=== PATIENT | male | born 1980 | race Caucasian/White ===

== ENCOUNTER 2019-06-25 14:08 | Inpatient (IN) | payer OTHER ==
[2019-06-25] MEDS ORDERED: PANTOPRAZOLE SODIUM 40 MG VIAL IVPUSH ONE (15:47)
[2019-06-25] MEDS ORDERED: ONDANSETRON 4 MG/2 ML VIAL IVPUSH ONE (15:47)
--- NOTE | 2019-06-25 15:51 | PDOC ---
History of Present Illness - General Chief Complaint: Vomiting/Diarrhea Stated Complaint: VOMITING & DIARRHEA Time Seen by Provider: 06/25/19 15:37 History Source: Patient Exam Limitations: No Limitations - History of Present Illness Initial Comments: 06/25/19 15:50 38 yo male pmh umbilical hernia (pending surgical correction 06/30/2019) presents to the ED for bloody diarrhea and vomiting blood. Pt states he had a similar episode 2003, had an EGD and colonoscopy at that time but does not remember findings, did not require outpatient f/u and has not had symptoms since. Pt states today, 2 episodes of loose dark stools with bright red blood around it and 2 episodes of bright red blood in the vomit. states pt appears pale however, denies weakness, dizziness, denies abdominal pain or pain on defecation, denies CP, SOB, back pain, F/C/N/V, changes in eating habits or recent NSAID use. Past History - Past Medical History Allergies/Adverse Reactions: Allergies Allergy/AdvReac Type Severity Reaction Status Date / Time No Known Allergies Allergy Verified 06/25/19 16:27 Home Medications: Ambulatory Orders Finasteride 5 mg PO DAILY 06/25/19 Review of Systems - Review of Systems Constitutional: No: Chills, Fever Respiratory: No: Shortness of Breath Cardiac (ROS): No: Chest Pain, Syncope ABD/GI: Yes: Diarrhea (bloody and dark), Nausea, Vomiting (bloody). No: Abdominal Distended Musculoskeletal: No: Back Pain Integumentary: Yes: Pallor Neurological: No: Headache, Numbness, Paresthesia, Weakness, Unsteady Gait, Dizziness *Physical Exam - Physical Exam General Appearance: Yes: Nourished, Appropriately Dressed. No: Apparent Distress HEENT: positive: EOMI, Other (conjunctival pallor) Respiratory/Chest: positive: Lungs Clear, Normal Breath Sounds. negative: Accessory Muscle Use, Rapid RR, Crackles, Rales, Rhonchi, Stridor, Wheezing Cardiovascular: positive: Regular Rhythm, Regular Rate, S1, S2. negative: Edema , JVD, Murmur Vascular Pulses: Dorsalis-Pedis (R): 4+, Doralis-Pedis (L): 4+ Gastrointestinal/Abdominal: positive: Flat, Soft, Other (umbilical hernia, easily reducible, no tenderness ). negative: Pulsatile Mass, Distended, Guarding, Rebound, Tenderness Rectal Exam: positive: melena, heme positive stool, other (picture of stool today shows bright red blood around dark loose stools) Musculoskeletal: negative: CVA Tenderness Extremity: positive: Normal Inspection, Normal Range of Motion Integumentary: positive: Dry, Warm, Pale Neurologic: positive: Fully Oriented, Alert, Normal Mood/Affect, Normal Response , Motor Strength 10/04 ED Treatment Course - LABORATORY CBC & Chemistry Diagram: 06/25/19 16:25 06/25/19 16:25 - RADIOLOGY Radiology Studies Ordered: Category Date Time Status CHEST PA & LAT [RAD] Stat Radiology 06/25/19 15:49 Ordered Medical Decision Making - Medical Decision Making 06/25/19 16:11 38 yo male pmh umbilical hernia (pending surgical correction 06/30/2019) presents to the ED for bloody diarrhea and vomiting blood. Pt states he had a similar episode 2003, had an EGD and colonoscopy at that time but does not remember findings, did not require outpatient f/u and has not had symptoms since. Pt states today, 2 episodes of loose dark stools with bright red blood around it and 2 episodes of bright red blood in the vomit. states pt appears pale however, denies weakness, dizziness, denies abdominal pain or pain on defecation, denies CP, SOB, back pain, F/C/N/V, changes in eating habits or recent NSAID use. vitals WNL Pt well appearing, ambulatory without difficulty, noted pale conjunctiva bilaterally and blood in stool via picture. Rectal exam shows no hemorrhoids or active rectal bleeding. Dark stools shown with blood in the stool occult will do labs and CXR Labs WNL however, BUN elevated to 27 and Cr WNL 06/25/19 18:[address] Rodriguez, states no GI coverage on weekends at [facility], no EGD /colonoscopy and recommends transfer to [facility] for serial CBC and possible EGD if required Pending call back for admission to tele from hospitalist 06/25/19 19:22 discussed case with hospitalist, agrees to admission however, if no tele beds available, pt likely to be transferred Discharge - Discharge Information Problems reviewed: Yes Clinical Impression/Diagnosis: Upper GI bleed Condition: Stable - Admission Yes - Follow up/Referral - Patient Discharge Instructions - Post Discharge Activity
[2019-06-25] MEDS ORDERED: PANTOPRAZOLE SODIUM 40 MG VIAL ONE (16:31)
[2019-06-25] MEDS ORDERED: ONDANSETRON 4 MG/2 ML VIAL ONE (16:31)
[2019-06-25 16:51] LABS: BASO % 0.2 % (0-2.0); EOS % 0.6 % (0-4.5); HEMATOCRIT 41.5 % (35.4-49); HEMOGLOBIN 13.7 GM/dl (11.7-16.9); LYMPH % 15.1 % (8-40); MEAN CELL VOLUME 90.8 fl (80-96); MEAN PLT VOLUME 8.5 fl (7.5-11.1); MONO % 8.7 % (3.8-10.2); NEUT % 75.4 % (42.8-82.8); PLATELET COUNT 204 K/MM3 (134-434); RBC 4.57 M/mm3 (4.00-5.60); WHITE BLOOD COUNT 6.3 K/mm3 (4.0-10.8)
[2019-06-25 17:02] LABS: INR 1.38 (0.82-1.09); PROTHROMBIN TIME (PATIENT) 15.4 SEC (10.2-13.0)
[2019-06-25 17:17] LABS: ALBUMIN 3.8 g/dl (3.4-5.0); BILIRUBIN,TOTAL 1.2 mg/dl (0.2-1); CALCIUM 8.5 mg/dl (8.5-10); POTASSIUM 4.4 mmol/L (3.5-5.1); TOT PROT 6.7 g/dl (6.4-8.2)
[2019-06-25 21:17] LABS: HEMATOCRIT 35.9 % (35.4-49); HEMOGLOBIN 12.4 GM/dl (11.7-16.9); MCH 31.5 pg (25.7-33.7); MCHC 34.5 g/dl (32.0-35.9); MEAN CELL VOLUME 91.2 fl (80-96); MEAN PLT VOLUME 8.7 fl (7.5-11.1); PLATELET COUNT 169 K/MM3 (134-434); RBC 3.94 M/mm3 (4.00-5.60); RDW 12.1 % (11.9-15.9); WHITE BLOOD COUNT 5.8 K/mm3 (4.0-10.8)
--- NOTE | 2019-06-25 22:24 | HP ---
CHIEF COMPLAINT: Blood in vomit and stool. PCP: none HISTORY OF PRESENT ILLNESS: 38 yo m w/ no PMH comes into [place] ED c/o a 1 day history of hematemesis and melena. The patient woke up this AM feeling weak and tired and had a total a 2 episodes of coffee ground emesis as well as 2 episodes of melena. The patient has associated lightheadedness and pallor. The patient had a simialr epsiode several eyars ago and was worked up as an inpatient by GI and sent home with nexium and no GI follow up. The patient does not recall the results of his EGD at that time. Patient has not had a bleeding episode since 2pm today and feels only a mild amount of weakness. There was no GI service available at [facility], so the patient was transferred to [facility] for further evaluation. Recent Travel: none PAST MEDICAL HISTORY: see HPI PAST SURGICAL HISTORY: none Social History: Smoking: denies Alcohol: denies Drugs: denies Allergies No Known Allergies Allergy (Verified 06/25/19 16:27) HOME MEDICATIONS: Home Medications Medication Instructions Recorded Finasteride 5 mg PO DAILY 06/25/19 REVIEW OF SYSTEMS CONSTITUTIONAL: Absent: fever, chills, diaphoresis, loss of appetite, weight change HEENT: Absent: rhinorrhea, nasal congestion, throat pain, throat swelling, difficulty swallowing, mouth swelling, ear pain, eye pain, visual changes CARDIOVASCULAR: Absent: chest pain, syncope, palpitations, irregular heart rate, lightheadedness , peripheral edema RESPIRATORY: Absent: cough, shortness of breath, dyspnea with exertion, orthopnea, wheezing, stridor, hemoptysis GASTROINTESTINAL: Absent: abdominal pain, abdominal distension GENITOURINARY: Absent: dysuria, frequency, urgency, hesitancy, hematuria, flank pain, genital pain MUSCULOSKELETAL: Absent: myalgia, arthralgia, joint swelling, back pain, neck pain SKIN: Absent: rash, itching, pallor HEMATOLOGIC/IMMUNOLOGIC: Absent: easy bleeding, easy bruising, lymphadenopathy, frequent infections ENDOCRINE: Absent: unexplained weight gain, unexplained weight loss, heat intolerance, cold intolerance NEUROLOGIC: Absent: headache, focal weakness or paresthesias, dizziness, unsteady gait, seizure, mental status changes, bladder or bowel incontinence PSYCHIATRIC: Absent: anxiety, depression, suicidal or homicidal ideation, hallucinations. PHYSICAL EXAMINATION Vital Signs - 24 hr 06/25/19 06/25/19 06/25/19 14:10 19:00 19:33 Temperature 98.7 F 98.0 F 98.0 F Pulse Rate 80 72 Pulse Rate [ 72 Right Radial] Respiratory 16 16 16 Rate Blood Pressure 128/85 135/75 Blood Pressure 135/75 [Right Arm] O2 Sat by Pulse 100 99 Oximetry (%) GENERAL: Awake, alert, and fully oriented, in no acute distress. EYES: Pupils equal, round and reactive to light, extraocular movements intact, sclera anicteric, conjunctival Pallor noted. LUNGS: Breath sounds equal, clear to auscultation bilaterally. No wheezes, and no crackles. No accessory muscle use. HEART: Regular rate and rhythm, normal S1 and S2 without murmur, rub or gallop. ABDOMEN: Soft, nontender, not distended, normoactive bowel sounds, no guarding, no rebound, no masses. There is an easily reducible umbilical hernia resent which is mildly tender to palpation. Patient deferred rectal exam at the time of evaluation. LOWER EXTREMITIES: 2+ pulses, warm, well-perfused. No calf tenderness. No peripheral edema. NEUROLOGICAL: Cranial nerves II-X intact. Normal speech. PSYCHIATRIC: Cooperative. Good eye contact. Appropriate mood and affect. SKIN: Warm, dry, normal turgor, no rashes or lesions noted, normal capillary refill. Laboratory Results - last 24 hr 06/25/19 06/25/19 06/25/19 16:25 16:25 16:25 WBC 6.3 RBC 4.57 Hgb 13.7 Hct 41.5 MCV 90.8 MCH 30.0 MCHC 33.0 RDW 12.0 Plt Count 204 MPV 8.5 Absolute Neuts (auto) 4.9 Neutrophils % 75.4 Lymphocytes % 15.1 Monocytes % 8.7 Eosinophils % 0.6 Basophils % 0.2 PT with INR INR Sodium 136 Potassium 4.4 Chloride 103 Carbon Dioxide 27 Anion Gap 6 L BUN 27.0 H Creatinine 1.0 Est GFR (CKD-EPI)AfAm 109.40 Est GFR (CKD-EPI)NonAf 94.39 Random Glucose 96 Calcium 8.5 Total Bilirubin 1.2 H AST 23 ALT 43 Alkaline Phosphatase 55 Total Protein 6.7 Albumin 3.8 Lipase 93 Urine Color Urine Appearance Urine pH Urine Protein Urine Glucose (UA) Urine Ketones Urine Blood Urine Nitrite Urine Bilirubin Urine Urobilinogen Ur Leukocyte Esterase Stool Occult Blood Blood Type Antibody Screen 06/25/19 06/25/19 06/25/19 16:25 16:25 17:53 WBC RBC Hgb Hct MCV MCH MCHC RDW Plt Count MPV Absolute Neuts (auto) Neutrophils % Lymphocytes % Monocytes % Eosinophils % Basophils % PT with INR 15.4 H INR 1.38 H Sodium Potassium Chloride Carbon Dioxide Anion Gap BUN Creatinine Est GFR (CKD-EPI)AfAm Est GFR (CKD-EPI)NonAf Random Glucose Calcium Total Bilirubin AST ALT Alkaline Phosphatase Total Protein Albumin Lipase Urine Color Urine Appearance Urine pH Urine Protein Urine Glucose (UA) Urine Ketones Urine Blood Urine Nitrite Urine Bilirubin Urine Urobilinogen Ur Leukocyte Esterase Stool Occult Blood Positive Blood Type O POSITIVE Antibody Screen Negative 06/25/19 06/25/19 17:53 21:00 WBC 5.8 RBC 3.94 L Hgb 12.4 Hct 35.9 MCV 91.2 MCH 31.5 MCHC 34.5 RDW 12.1 Plt Count 169 MPV 8.7 Absolute Neuts (auto) Neutrophils % Lymphocytes % Monocytes % Eosinophils % Basophils % PT with INR INR Sodium Potassium Chloride Carbon Dioxide Anion Gap BUN Creatinine Est GFR (CKD-EPI)AfAm Est GFR (CKD-EPI)NonAf Random Glucose Calcium Total Bilirubin AST ALT Alkaline Phosphatase Total Protein Albumin Lipase Urine Color Yellow Urine Appearance Clear Urine pH 7.0 Urine Protein Negative Urine Glucose (UA) Negative Urine Ketones Negative Urine Blood Negative Urine Nitrite Negative Urine Bilirubin Negative Urine Urobilinogen 0.2 Ur Leukocyte Esterase Negative Stool Occult Blood Blood Type Antibody Screen ASSESSMENT/PLAN: 38 yo m w/ no PMH comes into [place] ED c/o a 1 day history of hematemesis and melena. Patient begin admitted for further workup and monitoring. #Hematemesis and hematochezia 2/2 GIB -had similar episode in the past -hemodyamically stable -Hb stable, ok to monitor in AM -protonix GTT -GI evaluation in AM -transfusion threshold 7 #FEN -protonix GTT -lytes wnl -npo until gi eval #prophy -scds; holding AC for GI bleeder -protonix GTT #Dispo -admit tele Family Medical History Other Family History: father has history of multiple bleeding ulcers Visit type - Emergency Visit Emergency Visit: Yes ED Registration Date: 06/25/19 Care time: The patient presented to the Emergency Department on the above date and was hospitalized for further evaluation of their emergent condition. - New Patient This patient is new to me today: Yes Date on this admission: 06/26/19 - Critical Care Critical Care patient: No ATTENDING PHYSICIAN STATEMENT I saw and evaluated the patient. I reviewed the resident's note and discussed the case with the resident. I agree with the resident's findings and plan as documented. SUBJECTIVE: OBJECTIVE: ASSESSMENT AND PLAN:
[2019-06-25 22:52] VITALS: BMI 33.0
--- NOTE | 2019-06-25 23:02 | PN ---
Teaching Attending Note Name of Resident: Colton Logan ATTENDING PHYSICIAN STATEMENT I saw and evaluated the patient. I reviewed the resident's note and discussed the case with the resident. I agree with the resident's findings and plan as documented. SUBJECTIVE: 38-year-old male with no significant past medical history aside from hematemesis when he was 19 years old status post EGD and no further management, presented with hematemesis x2 and 2 bloody BMs which started 06/25/2019 in the morning. Patient reported that he vomited small amount of bright red blood probably not enough to fill a small cup. Blood in stool was minimal as well. No loss of consciousness or dizziness. Never had a colonoscopy. Denies taking any NSAIDs. Patient was transferred to [facility] from [facility]. OBJECTIVE: Last Vital Signs Temp Pulse Resp BP Pulse Ox 98.4 F 83 18 148/81 98 06/25/19 22:10 06/25/19 22:10 06/25/19 22:10 06/25/19 22:10 06/25/19 22:10 GENERAL: Obese, not in acute distress, well-developed HEENT: Normocephalic, atraumatic. PERRLA, EOMI. No conjunctival pallor. Sclera are non- icteric. Moist mucous membranes. Oropharynx is clear. NECK: Supple. Full ROM. No JVD. Carotid pulses 2+ and symmetric, without bruits. No thyromegaly. No lymphadenopathy. CARDIOVASCULAR: Regular rate and rhythm. No murmurs, rubs, or gallops. Distal pulses are 2+ and symmetric. PULMONARY: No evidence of respiratory distress. Lungs clear to auscultation bilaterally. No wheezing, rales or rhonchi. ABDOMINAL: Soft. Obese, Non-tender. Non-distended. No rebound or guarding. No organomegaly. Normoactive bowel sounds. MUSCULOSKELETAL Normal range of motion at all joints. No bony deformities or tenderness. No CVA tenderness. EXTREMITIES: No cyanosis. No clubbing. No edema. No calf tenderness. SKIN: Warm and dry. Normal capillary refill. No rashes. No jaundice. PSYCHIATRIC: Cooperative. Good eye contact. Appropriate mood and affect. Abnormal Lab Results 06/25/19 06/25/19 06/25/19 16:25 16:25 21:00 RBC 3.94 L PT with INR 15.4 H INR 1.38 H Anion Gap 6 L BUN 27.0 H Total Bilirubin 1.2 H ASSESSMENT AND PLAN: 38-year-old male with GI bleed, uncertain source of bleed. SHERI was performed in [facility] and did not show any hemorrhoids.Patient is hemodynamically stable at this time. Hemoglobin is stable. PT was appreciated and very mildly elevated, platelets were noted to be normal. Admit to telemetry Ensure 2 large-bore IVs are in place Monitor vital signs every 4 hours CBC every 6 hours Send PTT and type and screen GI consult Protonix drip IV fluid hydration N.p.o. If large bloody vomitus or BM would consider to transfer to ICU SCDs for DVT prophylaxis
[2019-06-25] MEDS: PANTOPRAZOLE SODIUM 80 MG in SODIUM CHLORIDE 100 ML IVPB SCH (23:27)
[2019-06-25] MEDS ORDERED: ONDANSETRON 4 MG/2 ML VIAL IVPUSH PRN (23:48)
[2019-06-26] MEDS: SODIUM CHLORIDE 1,000 ML IV SCH (02:20)
[2019-06-26 07:48] LABS: HEMATOCRIT 36.1 % (35.4-49); HEMOGLOBIN 12.4 GM/dL (11.7-16.9); MCH 31.1 pg (25.7-33.7); MCHC 34.4 g/dl (32.0-35.9); MEAN CELL VOLUME 90.4 fl (80-96); MEAN PLT VOLUME 8.7 fl (7.5-11.1); PLATELET COUNT 179 K/MM3 (134-434); RDW 12.8 % (11.9-15.9)
[2019-06-26 09:23] LABS: ALBUMIN 3.4 g/dl (3.4-5.0); BILIRUBIN,TOTAL 0.8 mg/dL (0.2-1); BLOOD UREA NITROGEN 26.6 mg/dL (7-18); CALCIUM 8.4 mg/dL (8.5-10.1); MAGNESIUM 2.4 mg/dL (1.8-2.4); PHOSPHOROUS 2.8 mg/dL (2.5-4.9); POTASSIUM 4.3 mmol/L (3.5-5.1)
[2019-06-26] MEDS: PANTOPRAZOLE SODIUM 80 MG in SODIUM CHLORIDE 100 ML IVPB SCH ×2 (09:30→17:43)
--- NOTE | 2019-06-26 10:35 | EKG ---
Test Reason : Blood Pressure : / mmHG Vent. Rate : 074 BPM Atrial Rate : 074 BPM P-R Int : 138 ms QRS Dur : 138 ms QT Int : 430 ms P-R-T Axes : 026 021 007 degrees QTc Int : 477 ms NORMAL SINUS RHYTHM RIGHT BUNDLE BRANCH BLOCK ABNORMAL ECG NO PREVIOUS ECGS AVAILABLE Confirmed by KSNEIA RAZO MD ([id number]) on 06/26/2019 10:35:09 AM Referred By: MD MCNEIL Confirmed By:KSENIA RAZO MD
--- NOTE | 2019-06-26 12:27 | PN ---
Physical Exam: SUBJECTIVE: Patient seen and examined; no further bleeding. No new complaints. Doing well. H/H stable; d/w GI and will scope friday. No new complaints. DC cardiac monitoring as not indicated. 10 sys ROS done and negative aside from HPI OBJECTIVE: Vital Signs Period Temp Pulse Resp BP Sys/Yang Pulse Ox Last 24 Hr 97.5 F-98.7 F 72-86 16-18 123-148/74-85 98-100 GENERAL: The patient is awake, alert, and fully oriented, in no acute distress. HEAD: Normal with no signs of trauma. EYES: PERRL, extraocular movements intact, sclera anicteric, conjunctiva clear. No ptosis. ENT: Ears normal, nares patent, oropharynx clear without exudates, moist mucous membranes. NECK: Trachea midline, full range of motion, supple. LUNGS: Breath sounds equal, clear to auscultation bilaterally, no wheezes, no crackles, no accessory muscle use. HEART: Regular rate and rhythm, S1, S2 without murmur, rub or gallop. ABDOMEN: Soft, nontender, nondistended, normoactive bowel sounds, no guarding, no rebound, no hepatosplenomegaly, no masses. EXTREMITIES: 2+ pulses, warm, well-perfused, no edema. NEUROLOGICAL: Cranial nerves II through XII grossly intact. Normal speech, gait not observed. PSYCH: Normal mood, normal affect. SKIN: Warm, dry, normal turgor, no rashes or lesions noted Laboratory Results - last 24 hr 06/25/19 06/25/19 06/25/19 16:25 16:25 16:25 WBC 6.3 RBC 4.57 Hgb 13.7 Hct 41.5 MCV 90.8 MCH 30.0 MCHC 33.0 RDW 12.0 Plt Count 204 MPV 8.5 Absolute Neuts (auto) 4.9 Neutrophils % 75.4 Lymphocytes % 15.1 Monocytes % 8.7 Eosinophils % 0.6 Basophils % 0.2 PT with INR INR Sodium 136 Potassium 4.4 Chloride 103 Carbon Dioxide 27 Anion Gap 6 L BUN 27.0 H Creatinine 1.0 Est GFR (CKD-EPI)AfAm 109.40 Est GFR (CKD-EPI)NonAf 94.39 Random Glucose 96 Calcium 8.5 Phosphorus Magnesium Total Bilirubin 1.2 H AST 23 ALT 43 Alkaline Phosphatase 55 Total Protein 6.7 Albumin 3.8 Lipase 93 Urine Color Urine Appearance Urine pH Urine Protein Urine Glucose (UA) Urine Ketones Urine Blood Urine Nitrite Urine Bilirubin Urine Urobilinogen Ur Leukocyte Esterase Stool Occult Blood Blood Type Antibody Screen 06/25/19 06/25/19 06/25/19 16:25 16:25 16:35 WBC RBC Hgb Hct MCV MCH MCHC RDW Plt Count MPV Absolute Neuts (auto) Neutrophils % Lymphocytes % Monocytes % Eosinophils % Basophils % PT with INR 15.4 H INR 1.38 H Sodium Potassium Chloride Carbon Dioxide Anion Gap BUN Creatinine Est GFR (CKD-EPI)AfAm Est GFR (CKD-EPI)NonAf Random Glucose Calcium Phosphorus Magnesium Total Bilirubin AST ALT Alkaline Phosphatase Total Protein Albumin Lipase Urine Color Urine Appearance Urine pH Urine Protein Urine Glucose (UA) Urine Ketones Urine Blood Urine Nitrite Urine Bilirubin Urine Urobilinogen Ur Leukocyte Esterase Stool Occult Blood Blood Type O POSITIVE O POSITIVE Antibody Screen Negative 06/25/19 06/25/19 06/25/19 17:53 17:53 21:00 WBC 5.8 RBC 3.94 L Hgb 12.4 Hct 35.9 MCV 91.2 MCH 31.5 MCHC 34.5 RDW 12.1 Plt Count 169 MPV 8.7 Absolute Neuts (auto) Neutrophils % Lymphocytes % Monocytes % Eosinophils % Basophils % PT with INR INR Sodium Potassium Chloride Carbon Dioxide Anion Gap BUN Creatinine Est GFR (CKD-EPI)AfAm Est GFR (CKD-EPI)NonAf Random Glucose Calcium Phosphorus Magnesium Total Bilirubin AST ALT Alkaline Phosphatase Total Protein Albumin Lipase Urine Color Yellow Urine Appearance Clear Urine pH 7.0 Urine Protein Negative Urine Glucose (UA) Negative Urine Ketones Negative Urine Blood Negative Urine Nitrite Negative Urine Bilirubin Negative Urine Urobilinogen 0.2 Ur Leukocyte Esterase Negative Stool Occult Blood Positive Blood Type Antibody Screen 06/26/19 06/26/19 06:42 06:42 WBC 6.0 RBC 4.00 Hgb 12.4 Hct 36.1 MCV 90.4 MCH 31.1 MCHC 34.4 RDW 12.8 Plt Count 179 MPV 8.7 Absolute Neuts (auto) Neutrophils % Lymphocytes % Monocytes % Eosinophils % Basophils % PT with INR INR Sodium 139 Potassium 4.3 Chloride 108 H Carbon Dioxide 27 Anion Gap 4 L BUN 26.6 H Creatinine 1.0 Est GFR (CKD-EPI)AfAm 109.40 Est GFR (CKD-EPI)NonAf 94.39 Random Glucose 93 Calcium 8.4 L Phosphorus 2.8 Magnesium 2.4 Total Bilirubin 0.8 AST 13 L ALT 43 Alkaline Phosphatase 59 Total Protein 6.0 L Albumin 3.4 Lipase Urine Color Urine Appearance Urine pH Urine Protein Urine Glucose (UA) Urine Ketones Urine Blood Urine Nitrite Urine Bilirubin Urine Urobilinogen Ur Leukocyte Esterase Stool Occult Blood Blood Type Antibody Screen Active Medications Generic Name Dose Route Start Last Admin Trade Name Freq PRN Reason Stop Dose Admin Pantoprazole Sodium 80 mg/ 100 mls @ 10 mls/hr 06/25/19 22:30 06/26/19 09:30 Sodium Chloride IVPB 06/28/19 22:29 10 mls/hr Q10H TAMARA Administration 8 MG/HR Sodium Chloride 1,000 mls @ 83 mls/hr 06/26/19 02:15 06/26/19 02:20 Normal Saline - IV 83 mls/hr ASDIR TAMARA Administration Ondansetron HCl 4 mg 06/25/19 23:48 Zofran Injection IVPUSH Q6H PRN NAUSEA ASSESSMENT/PLAN: Seen and examined; presents with GIB w/ melena/hematochezia. Continue fluids, protonix drip. Scope friday. DC cardiac monitoring Problems include: -GIB -Obesity -BPH Full Code Visit type - Emergency Visit Emergency Visit: Yes ED Registration Date: 06/25/19 Care time: The patient presented to the Emergency Department on the above date and was hospitalized for further evaluation of their emergent condition. - New Patient This patient is new to me today: Yes Date on this admission: 06/26/19 - Critical Care Critical Care patient: No - Discharge Referral Referred to [facility] Med P.C.: No
--- NOTE | 2019-06-26 14:10 | CON.GI ---
Consult Consult Specialty:: Gastroenterology ( covering the GI service) Referred by:: Colton Logan MD Reason for Consultation:: GI bleed - History of Present Illness Chief Complaint: Hematemesis and melena History of Present Illness: 38M developed two episodes of hematemesis followed by melena yesterday. There was also red blood with the melena. No abdominal pain. No BMs or vomiting today. He had a similar episode in 2003 when he underwent an EGD at [facility] but cannot recall the results. He was treated with Nexium. He denies recent NSAIDs but did take an NSAID for 6 days in May. He has only rare reflux but does have morning hoarseness and phlegm. His father had peptic ulcer disease. - History Source History Provided By: Patient Limitations to Obtaining History: No Limitations - Past Medical History Gastrointestinal: Yes: GI Bleed (2003 -underwent EGD at [facility] but cannot recall the results) - Past Surgical History Past Surgical History: Yes: None - Alcohol/Substance Use Hx Alcohol Use: Yes (OCCASIONAL) History of Substance Use: reports: None - Smoking History Smoking history: Never smoked - Social History Usual Living Arrangement: With Spouse ADL: Independent Occupation: Telecommunications Linesworker for [employer] Place of : [facility] History of Recent Travel: No Home Medications - Allergies Allergies/Adverse Reactions: Allergies Allergy/AdvReac Type Severity Reaction Status Date / Time No Known Allergies Allergy Verified 06/25/19 16:27 - Home Medications Home Medications: Ambulatory Orders Finasteride 5 mg PO DAILY 06/25/19 Family Medical History Family Hx Cancer: Mother (NonHodgkins lymphoma survivor), Father (advanced prostate cancer in his 70s) Other Family History: GF with lung cancer, other GF had pancreatic cancer Review of Systems - Review of Systems Constitutional: reports: No Symptoms Eyes: reports: No Symptoms HENT: reports: No Symptoms Neck: reports: No Symptoms Cardiovascular: reports: No Symptoms Respiratory: reports: No Symptoms Gastrointestinal: reports: Melena, Vomiting Blood Genitourinary: reports: No Symptoms Breasts: reports: No Symptoms Reported Musculoskeletal: reports: No Symptoms Neurological: reports: No Symptoms Physical Exam-GI Vital Signs: Vital Signs Temperature 98.3 F 06/26/19 10:00 Pulse Rate 84 06/26/19 10:00 Respiratory Rate 18 06/26/19 10:00 Blood Pressure 141/74 06/26/19 10:00 O2 Sat by Pulse Oximetry (%) 99 06/26/19 10:00 CBC,CMP WBC 6.0 K/mm3 (4.0-10.0) 06/26/19 06:42 RBC 4.00 M/mm3 (4.00-5.60) 06/26/19 06:42 Hgb 12.4 GM/dL (11.7-16.9) 06/26/19 06:42 Hct 36.1 % (35.4-49) 06/26/19 06:42 MCV 90.4 fl (80-96) 06/26/19 06:42 MCH 31.1 pg (25.7-33.7) 06/26/19 06:42 MCHC 34.4 g/dl (32.0-35.9) 06/26/19 06:42 RDW 12.8 % (11.9-15.9) 06/26/19 06:42 Plt Count 179 K/MM3 (134-434) 06/26/19 06:42 MPV 8.7 fl (7.5-11.1) 06/26/19 06:42 Absolute Neuts (auto) 4.9 K/mm3 06/25/19 16:25 Neutrophils % 75.4 % (42.8-82.8) 06/25/19 16:25 Lymphocytes % 15.1 % (8-40) 06/25/19 16:25 Monocytes % 8.7 % (3.8-10.2) 06/25/19 16:25 Eosinophils % 0.6 % (0-4.5) 06/25/19 16:25 Basophils % 0.2 % (0-2.0) 06/25/19 16:25 Sodium 139 mmol/L (136-145) 06/26/19 06:42 Potassium 4.3 mmol/L (3.5-5.1) 06/26/19 06:42 Chloride 108 mmol/L (98-107) H 06/26/19 06:42 Carbon Dioxide 27 mmol/L (21-32) 06/26/19 06:42 Anion Gap 4 MMOL/L (8-16) L 06/26/19 06:42 BUN 26.6 mg/dL (7-18) H 06/26/19 06:42 Creatinine 1.0 mg/dL (0.55-1.3) 06/26/19 06:42 Est GFR (CKD-EPI)AfAm 109.40 06/26/19 06:42 Est GFR (CKD-EPI)NonAf 94.39 06/26/19 06:42 Random Glucose 93 mg/dL (74-106) 06/26/19 06:42 Calcium 8.4 mg/dL (8.5-10.1) L 06/26/19 06:42 Phosphorus 2.8 mg/dL (2.5-4.9) 06/26/19 06:42 Magnesium 2.4 mg/dL (1.8-2.4) 06/26/19 06:42 Total Bilirubin 0.8 mg/dL (0.2-1) 06/26/19 06:42 AST 13 U/L (15-37) L 06/26/19 06:42 ALT 43 U/L (13-61) 06/26/19 06:42 Alkaline Phosphatase 59 U/L (45-117) 06/26/19 06:42 Total Protein 6.0 g/dl (6.4-8.2) L 06/26/19 06:42 Albumin 3.4 g/dl (3.4-5.0) 06/26/19 06:42 Lipase 93 U/L (73-393) 06/25/19 16:25 Current Medications Generic Name Dose Route Start Last Admin Trade Name Freq PRN Reason Stop Dose Admin Pantoprazole Sodium 80 mg/ 100 mls @ 10 mls/hr 06/25/19 22:30 06/26/19 09:30 Sodium Chloride IVPB 06/28/19 22:29 10 mls/hr Q10H TAMARA Administration 8 MG/HR Sodium Chloride 1,000 mls @ 83 mls/hr 06/26/19 02:15 06/26/19 02:20 Normal Saline - IV 83 mls/hr ASDIR TAMARA Administration Ondansetron HCl 4 mg 06/25/19 23:48 Zofran Injection IVPUSH Q6H PRN NAUSEA Constitutional: Yes: No Distress, Calm Eyes: Yes: Conjunctiva Clear HENT: Yes: Atraumatic Neck: Yes: Trachea Midline Cardiovascular: Yes: Regular Rate and Rhythm Respiratory: Yes: CTA Bilaterally Gastrointestinal Inspection: Yes: Hernia (nontender umbilical hernia) ...Auscultate: Yes: Normoactive Bowel Sounds ...Palpate: Yes: Soft, Other (nontender) ...Rectal Exam: Yes: Guaiac Positive (black loose guaiac positive stool, 1+ prostate, no masses no inguinal hernias, normal genitalia) Edema: No Peripheral Pulses WNL: Yes Neurological: Yes: Alert, Oriented Labs: CBC, BMP 06/26/19 06:42 06/26/19 06:42 INR, PTT INR 1.38 (0.82-1.09) H 06/25/19 16:25 Problem List - Problems (1) Hematemesis Code(s): K92.0 - HEMATEMESIS (2) Melena Code(s): K92.1 - MELENA (3) Hematochezia Code(s): K92.1 - MELENA (4) Umbilical hernia Code(s): K42.9 - UMBILICAL HERNIA WITHOUT OBSTRUCTION OR GANGRENE Assessment/Plan Assessment: - Given the hematemesis this is a UGI bleed. The red blood alongside melena suggests a brisk bleed which now appears to have subsided. Potential etiologies include peptic ulcer disease, erosive gastritis or GERD, Dieulafoy erosion bleed or perhaps a Allyson Portillo tear Plan: -- Continue PPI drip -- Serial CBCs -- I have discussed EGD in detail including informing Jonathan and his of the potential for such complications as perforation and hemorrhage. He has signed an informed consent. I have scheduled it for 06/18 but will do it emergently if necessary
[2019-06-26] MEDS: MAG HYDROX/AL HYDROX/SIMETH 30 ML UNIT-DOSE CUP PO SCH ×2 (14:11→21:41)
[2019-06-27] MEDS ORDERED: PT OWN MED DRAWER 7, Y5N ONE (01:12)
[2019-06-27] MEDS: MAG HYDROX/AL HYDROX/SIMETH 30 ML UNIT-DOSE CUP PO SCH ×4 (01:35→20:56)
[2019-06-27] MEDS: PANTOPRAZOLE SODIUM 80 MG in SODIUM CHLORIDE 100 ML IVPB SCH ×4 (01:35→20:20)
[2019-06-27] MEDS: SODIUM CHLORIDE 1,000 ML IV SCH (01:35)
[2019-06-27 08:36] LABS: HEMATOCRIT 34.1 % (35.4-49); MCH 31.3 pg (25.7-33.7); MCHC 35.1 g/dl (32.0-35.9); MEAN CELL VOLUME 89.2 fl (80-96); MEAN PLT VOLUME 8.1 fl (7.5-11.1); PLATELET COUNT 177 K/MM3 (134-434); RBC 3.83 M/mm3 (4.00-5.60); RDW 12.7 % (11.9-15.9); WHITE BLOOD COUNT 4.3 K/mm3 (4.0-10.0)
[2019-06-27 09:08] LABS: ALBUMIN 3.3 g/dl (3.4-5.0); BILIRUBIN,TOTAL 0.5 mg/dL (0.2-1); BLOOD UREA NITROGEN 14.1 mg/dL (7-18); CALCIUM 8.5 mg/dL (8.5-10.1); CREATININE 0.9 mg/dL (0.55-1.3); POTASSIUM 4.1 mmol/L (3.5-5.1)
--- NOTE | 2019-06-27 10:51 | PN ---
Teaching Attending Note Name of Resident: Satya Amador ATTENDING PHYSICIAN STATEMENT I saw and evaluated the patient. I reviewed the resident's note and discussed the case with the resident. I agree with the resident's findings and plan as documented. Seen and examined; please see resident note for further historical information. I personally verified all bravo historical information and exam findings. Personally interpreted all imaging and diagnostics and reviewed appropriate consults. I reviewed all labs and vital signs as per resident note and EMR as documented. I agree with the above assessment and plan unless supplemented by myself in the following. Seen and examined, discussed with GI. Patient was advanced to full diet and is doing well today. Discussed with resident team. No further bleeding, hemoglobin stable, scope tomorrow. Disposition depending on scope results 10 item review of systems completed and is negative aside from as discussed in the subjective data in my own/the resident documentation. VS, labs, imaging reviewed NAD, AAO, resting comfortably in bed. RRR s1/2 no mgr Normal muscle tone, moves all 5 extremities with normal apparent strength Neck is supple, trachea midline, no gamaliel LN Lungs CTAB with sym expansion NT ND +BS no gamaliel organomegaly CN2-12 wnl; no FND NC AT EOMI PERRLA Normal mood, appropriate behavior, euthymic affect No skin breakdown or rashes noted Assessment and plan: Patient presents with melena/some hematochezia with stable blood counts. Is hemodynamically stable and has no new complaints today. Gastroenterology is following. Will go for procedure tomorrow, n.p.o. at midnight. Restart fluids tonight as NPO. Problems include -GI bleed -Obesity -BPH on proscar, no s/s obstruction Full Code
[2019-06-27] MEDS: FINASTERIDE 5 MG TABLET (FP) PO SCH (13:36)
--- NOTE | 2019-06-27 15:18 | PN ---
Physical Exam: SUBJECTIVE: Patient seen and examined. Pt afebrile and asymptomatic. No overnight events. Denies f/c/n/v/d/chest pain. OBJECTIVE: Vital Signs Period Temp Pulse Resp BP Sys/Yang Pulse Ox Last 24 Hr 97.7 F-98.3 F 69-88 18-20 115-142/65-79 99 GENERAL: AOx3, NAD EYES: ARIS, EOMI, conjunctival Pallor noted. LUNGS: Breath sounds equal, clear to auscultation bilaterally. No wheezes, and no crackles. No accessory muscle use. HEART: Regular rate and rhythm, normal S1 and S2 without murmur, rub or gallop. ABDOMEN: Soft, nontender, not distended, normoactive bowel sounds, no guarding, no rebound, no masses. There is an easily reducible umbilical hernia resent which is mildly tender to palpation. Patient deferred rectal exam LOWER EXTREMITIES: 2+ pulses, warm, well-perfused. No calf tenderness. No peripheral edema. NEUROLOGICAL: Cranial nerves II-X intact. Normal speech. PSYCHIATRIC: Cooperative. Good eye contact. Appropriate mood and affect. SKIN: Warm, dry, normal turgor, no rashes or lesions noted, normal capillary refill. Laboratory Results - last 24 hr 06/27/19 06/27/19 08:20 08:20 WBC 4.3 RBC 3.83 L Hgb 12.0 Hct 34.1 L MCV 89.2 MCH 31.3 MCHC 35.1 RDW 12.7 Plt Count 177 MPV 8.1 Sodium 141 Potassium 4.1 Chloride 109 H Carbon Dioxide 28 Anion Gap 5 L BUN 14.1 Creatinine 0.9 Est GFR (CKD-EPI)AfAm 124.26 Est GFR (CKD-EPI)NonAf 107.21 Random Glucose 95 Calcium 8.5 Total Bilirubin 0.5 AST 14 L ALT 39 Alkaline Phosphatase 59 Total Protein 6.0 L Albumin 3.3 L Active Medications Generic Name Dose Route Start Last Admin Trade Name Freq PRN Reason Stop Dose Admin Al Hydroxide/Mg Hydroxide 30 ml 06/26/19 14:30 06/27/19 13:36 Mylanta Oral Suspension - PO 30 ml Q6H TAMARA Administration Finasteride 5 mg 06/27/19 12:15 06/27/19 13:36 Proscar - PO 5 mg DAILY TAMARA Administration Pantoprazole Sodium 80 mg/ 100 mls @ 10 mls/hr 06/25/19 22:30 06/27/19 05:26 Sodium Chloride IVPB 06/28/19 22:29 Not Given Q10H TAMARA 8 MG/HR Lactated Ringer's 1,000 ml in 1,000 mls @ 83 mls/hr 06/27/19 21:30 Lactated Ringers Solution IV ASDIR TAMARA Ondansetron HCl 4 mg 06/25/19 23:48 Zofran Injection IVPUSH Q6H PRN NAUSEA ASSESSMENT/PLAN: 38 yo m w/ no PMH presents to the ED c/o a 1 day history of hematemesis and melena, admitted for upper GI bleed, #Upper GI bleed likely 2/2 PUD vs erosive gastritis or GERD vs Dieulafoy erosion bleed vs Allyson Portillo tear hemodyamically stable Now resolved Hb stable protonix 80mg EGD tomorrow morning for eval #FEN monitor lytes npo after midnight LR at 83 #DVT ppx SCDs in the setting of GI bleed, lower risk pt #Dispo: cont protonix, trend cbc, EGD louann Visit type - Emergency Visit Emergency Visit: Yes ED Registration Date: 06/25/19 Care time: The patient presented to the Emergency Department on the above date and was hospitalized for further evaluation of their emergent condition. - New Patient This patient is new to me today: Yes Date on this admission: 06/27/19 - Critical Care Critical Care patient: No - Discharge Referral [facility]erred to [facility] Med P.C.: No ATTENDING PHYSICIAN STATEMENT I saw and evaluated the patient. I reviewed the resident's note and discussed the case with the resident. I agree with the resident's findings and plan as documented. SUBJECTIVE: OBJECTIVE: ASSESSMENT AND PLAN:
--- NOTE | 2019-06-27 17:13 | PN.GI ---
GI Progress Note Subjective: GI NOte (covering the [facility] service): Had melena today but Hb is stable. No hematemesis - Objective Vital Signs: Vital Signs Temperature 97.8 F 06/27/19 15:00 Pulse Rate 75 06/27/19 15:00 Respiratory Rate 20 06/27/19 15:00 Blood Pressure 144/50 L 06/27/19 15:00 O2 Sat by Pulse Oximetry (%) 99 06/26/19 21:00 Laboratory Tests 06/25/19 06/26/19 06/26/19 16:25 06:42 06:42 Hgb 13.7 12.4 BUN 26.6 H Creatinine 1.0 06/27/19 08:20 Hgb 12.0 BUN Creatinine Constitutional: No Distress ...Auscultate: Yes: Normoactive Bowel Sounds ...Palpate: Yes: Soft, Other (nontender) Labs: CBC, BMP 06/27/19 08:20 06/27/19 08:20 INR, PTT INR 1.38 (0.82-1.09) H 06/25/19 16:25 Assessment/Plan Assessment: - Resolving UGI bleed. Plan: -- Continue PPI drip -- Serial CBCs -- EGD tomorrow with Dr. Tucker Problem List - Problems (1) Hematemesis Code(s): K92.0 - HEMATEMESIS (2) Melena Code(s): K92.1 - MELENA (3) Hematochezia Code(s): K92.1 - MELENA (4) Umbilical hernia Code(s): K42.9 - UMBILICAL HERNIA WITHOUT OBSTRUCTION OR GANGRENE
[2019-06-27] MEDS ORDERED: LACTATED RINGERS SOLUTION 1,000 ML/1,000 ML INFUS.BAG IV SCH (21:30)
[2019-06-28] MEDS: PANTOPRAZOLE SODIUM 80 MG in SODIUM CHLORIDE 100 ML IVPB SCH ×2 (01:00→11:58)
[2019-06-28] MEDS: MAG HYDROX/AL HYDROX/SIMETH 30 ML UNIT-DOSE CUP PO SCH ×3 (05:06→13:36)
[2019-06-28 07:15] LABS: HEMATOCRIT 31.9 % (35.4-49); HEMOGLOBIN 11.2 GM/dL (11.7-16.9); MCH 31.1 pg (25.7-33.7); MCHC 34.9 g/dl (32.0-35.9); MEAN CELL VOLUME 89.2 fl (80-96); MEAN PLT VOLUME 8.4 fl (7.5-11.1); PLATELET COUNT 173 K/MM3 (134-434); RBC 3.58 M/mm3 (4.00-5.60); RDW 12.9 % (11.9-15.9); WHITE BLOOD COUNT 3.9 K/mm3 (4.0-10.0)
[2019-06-28 08:06] LABS: ALBUMIN 3.1 g/dl (3.4-5.0); BILIRUBIN,TOTAL 0.3 mg/dL (0.2-1); BLOOD UREA NITROGEN 12.8 mg/dL (7-18); CALCIUM 8.2 mg/dL (8.5-10.1); POTASSIUM 4.2 mmol/L (3.5-5.1); TOT PROT 5.7 g/dl (6.4-8.2)
--- NOTE | 2019-06-28 09:22 | PN ---
Teaching Attending Note Name of Resident: Satya Amador ATTENDING PHYSICIAN STATEMENT I saw and evaluated the patient. I reviewed the resident's note and discussed the case with the resident. I agree with the resident's findings and plan as documented. Seen and examined; please see resident note for further historical information. I personally verified all bravo historical information and exam findings. Personally interpreted all imaging and diagnostics and reviewed appropriate consults. I reviewed all labs and vital signs as per resident note and EMR as documented. I agree with the above assessment and plan unless supplemented by myself in the following. Spoke with Dr. John patient is cleared for discharge. Patient denies any further bleeding, hemodynamically stable. He had a EGD today with Dr. Tucker.Please see the full report for discussion 10 item review of systems completed and is negative aside from as discussed in the subjective data in my own/the resident documentation. VS, labs, imaging reviewed NAD, AAO, resting comfortably in bed. RRR s1/2 no mgr Normal muscle tone, moves all 5 extremities with normal apparent strength Neck is supple, trachea midline, no gamaliel LN Lungs CTAB with sym expansion NT ND +BS no gamaliel organomegaly CN2-12 wnl; no FND NC AT EOMI PERRLA Normal mood, appropriate behavior, euthymic affect No skin breakdown or rashes noted Assessment and plan: Patient presents with melena/some hematochezia with stable blood counts. Is hemodynamically stable and has no new complaints today. Gastroenterology is following. Will go for procedure tomorrow, n.p.o. at midnight. Restart fluids tonight as NPO. Problems include -GI bleed -Obesity -BPH on proscar, no s/s obstruction
[2019-06-28] MEDS: FINASTERIDE 5 MG TABLET (FP) PO SCH ×2 (09:40→11:27)
--- NOTE | 2019-06-28 11:53 | PN ---
Progress Note (short form) - Note Progress Note: GI Procedure NOte: Please see scanned EGd report. A nonbleeding prepyloric ulcer was found which is not bleeding and appears to be healing. Jonathan can be discharged but should has pantoprazole 40mg daily prescribed. He will followup in my office. Problem List - Problems (1) Hematemesis Code(s): K92.0 - HEMATEMESIS (2) Melena Code(s): K92.1 - MELENA (3) Hematochezia Code(s): K92.1 - MELENA (4) Umbilical hernia Code(s): K42.9 - UMBILICAL HERNIA WITHOUT OBSTRUCTION OR GANGRENE
[2019-06-28 12:12] VITALS: BP 119/73; PULSE 63; TEMP 98
--- NOTE | 2019-06-28 16:53 | DS ---
Physical Exam: SUBJECTIVE: Patient seen and examined. Pt afebrile and asymptomatic. No overnight events. Denies f/c/n/v/d/chest pain. OBJECTIVE: Vital Signs Period Temp Pulse Resp BP Sys/Yang Pulse Ox Last 24 Hr 97.5 F-98.1 F 63-86 11-20 106-147/36-78 95-99 PHYSICAL EXAM GENERAL: AOx3, NAD EYES: ARIS, EOMI, conjunctival Pallor noted. LUNGS: Breath sounds equal, clear to auscultation bilaterally. No wheezes, and no crackles. No accessory muscle use. HEART: Regular rate and rhythm, normal S1 and S2 without murmur, rub or gallop. ABDOMEN: Soft, nontender, not distended, normoactive bowel sounds, no guarding, no rebound, no masses. There is an easily reducible umbilical hernia resent which is mildly tender to palpation. Patient deferred rectal exam LOWER EXTREMITIES: 2+ pulses, warm, well-perfused. No calf tenderness. No peripheral edema. NEUROLOGICAL: Cranial nerves II-X intact. Normal speech. PSYCHIATRIC: Cooperative. Good eye contact. Appropriate mood and affect. SKIN: Warm, dry, normal turgor, no rashes or lesions noted, normal capillary refill. LABS Laboratory Results - last 24 hr 06/28/19 06/28/19 06:33 06:33 WBC 3.9 L RBC 3.58 L Hgb 11.2 L Hct 31.9 L MCV 89.2 MCH 31.1 MCHC 34.9 RDW 12.9 Plt Count 173 MPV 8.4 Sodium 142 Potassium 4.2 Chloride 110 H Carbon Dioxide 28 Anion Gap 5 L BUN 12.8 Creatinine 1.0 Est GFR (CKD-EPI)AfAm 109.40 Est GFR (CKD-EPI)NonAf 94.39 Random Glucose 100 Calcium 8.2 L Total Bilirubin 0.3 AST 14 L ALT 36 Alkaline Phosphatase 60 Total Protein 5.7 L Albumin 3.1 L HOSPITAL COURSE: Date of Admission:06/25/19 38 yo m w/ no PMH presents to the ED c/o a 1 day history of hematemesis and melena, admitted for upper GI bleed, likely 2/2 PUD vs erosive gastritis or GERD vs Dieulafoy erosion bleed vs Allyson Portillo tear. Pt was HD stable and hb was stable. 2 large bore IVs were placed, pt was placed NPO and GI was consulted. He had a similar episode in 2003 when he underwent an EGD at but cannot recall the results. He was treated with Nexium. The red blood alongside melena suggests a brisk bleed which now appears to have subsided. GI performed an EGD on pt which showed a nonbleeding prepyloric ulcer was found which is not bleeding and appears to be healing. He was discharged home on protonix 40mg daily, and referral for f/u at Dr. John's office. EKG: NSR, RBBB CXR: no acute changes EGD report. A nonbleeding prepyloric ulcer was found which is not bleeding and appears to be healing. Date of Discharge: 06/28/19 Minutes to complete discharge: 40 Discharge Summary Problems reviewed: Yes Reason For Visit: UPPER GI BLEED Condition: Improved - Instructions Diet, Activity, Other Instructions: You were admitted to the hospital for blood in your stool. While you were here we monitored you and your blood levels remained stable. You also had a procedure called an Endoscopy done and it did not show any abnormalities in your esophagus. To treat the blood in the stool please take: Protonix 40 mg by mouth once a day for 30 days It is very important that you avoid any NSAID medications such as Ibuprofen or Motrin. Please make an appointment to follow up with your primary care physician within one week, if you do not have one you can follow at our clinic. You should follow with the GI doctor within one week. Continue home medications as prescribed. Return to the Emergency Department if you have any nausea, vomiting, headache, fever, chills, shortness of breath, or dizziness. Referrals: [facility] [place] [facility] [place] [Provider Group] Genoveva John MD [Staff Physician] - Disposition: HOME - Home Medications Comprehensive Discharge Medication List: Ambulatory Orders Finasteride 5 mg PO DAILY 06/25/19 Pantoprazole Sodium [Protonix -] 40 mg PO DAILY #30 tablet.ec 06/28/19 This patient is new to me today: Yes Date on this admission: 06/28/19 Emergency Visit: Yes ED Registration Date: 06/25/19 Care time: The patient presented to the Emergency Department on the above date and was hospitalized for further evaluation of their emergent condition. Critical Care patient: No - Discharge Referral Referred to [facility] Med P.C.: No ATTENDING PHYSICIAN STATEMENT I saw and evaluated the patient. I reviewed the resident's note and discussed the case with the resident. I agree with the resident's findings and plan as documented. SUBJECTIVE: OBJECTIVE: ASSESSMENT AND PLAN:
[2019-06-29] MEDS ORDERED: PANTOPRAZOLE 40 MG TABLET PO SCH (10:00)
--- NOTE | 2019-06-30 19:42 | PATH ---
Surgical Pathology Report Patient Name: NATHALIE SRIVASTAVA Med. Rec. #: [id number] /Age/Gender: 1980 (Age: 38) / M Account: [id number] Location: 4 W TELEMETRY U Taken: 06/28/2019 Received: 06/28/2019 Reported: 06/30/2019 Physicians: Genoveva John M.D. Specimen(s) Received A: ANTRUM B: DUODENAL SECOND PORTION BULB Clinical History Hematemesis Postoperative diagnosis: Duodenitis, gastric ulcer, hiatal hernia Final Diagnosis A. ANTRAL BIOPSY: GASTRIC MUCOSA WITH MILD CHRONIC GASTRITIS AND REACTIVE GASTROPATHY. IMMUNOSTAIN FOR H. PYLORI IS NEGATIVE. NEGATIVE FOR INTESTINAL METAPLASIA. B. SECOND PORTION BULB OF ADDENDUM, BIOPSY: DUODENAL MUCOSA WITH FOCAL MILD NONSPECIFIC DUODENITIS. NO HISTOLOGIC EVIDENCE OF INTRAEPITHELIAL LYMPHOCYTOSIS. Electronically Signed Chris Marrufo M.D. Gross Description A. Received in formalin, labeled "antral biopsy" are 2 soler, irregular portions of soft tissue measuring 0.2 cm. in greatest dimension. The specimens are submitted in toto in one cassette. B. Received in formalin, labeled "second portion bulb of addendum biopsy" are 3 soler, irregular portions of soft tissue measuring 0.1 cm to 0.4 cm. in greatest dimension. The specimens are submitted in toto in one cassette. __ KWS/06/29/2019 sulki/06/29/2019
== END 2019-06-28 13:43 | disposition home or self-care (01) | DRG 384 ==
LOC: FER 14:08 → J4W 19:55
PROVIDERS: ADMIT Internal Medicine; ATTEND Internal Medicine
PROC: 0DB68ZX Excision of Stomach, Via Natural or Artificial Opening Endoscopic, Diagnostic (ICD-10-PCS; principal; 2019-06-28 10:30)
DX: K25.9 Gastric ulcer, unspecified as acute or chronic, without hemorrhage or perforation (principal); K44.9 Diaphragmatic hernia without obstruction or gangrene; K92.9 Disease of digestive system, unspecified; E66.9 Obesity, unspecified; Z68.33 Body mass index [BMI] 33.0-33.9, adult; N40.0 Benign prostatic hyperplasia without lower urinary tract symptoms; K29.80 Duodenitis without bleeding
CPT/HCPCS: 36415; 71046-TC-FY; 80053; 81003; 82272; 83690; 83735; 84100; 85025; 85027; 85610; 86850; 86900; 86901; 88305-TC; 93005; 99283-25; J7030